=== PATIENT | female | born 1985 | race Caucasian/White ===

== ENCOUNTER 2016-07-26 22:25 | Emergency (ER) | payer OTHER ==
[2016-07-26 22:39] VITALS: BP 131/80; RESP 16; O2SAT 98
[2016-07-26] MEDS ORDERED: _oxyCODONE/APAP 5-325 mg Tablet PO PRN (22:45)
--- NOTE | 2016-07-26 22:50 | ED.REPORT ---
HPI-Ear Pain/Problem/FB Date of Service July 26, 2016 ED Provider: Leonidas Rodríguez DO A 31 year old female with a history of migraines presents to the ED complaining of left ear pain. The pt has been experiencing this pain since returning from [place] on 07/15/2016 and is concerned that she may have perforated her eardrum. The pt has had a perforated eardrum before and required a patch. She has also taken Keflex without improvement. Nursing Notes Stated Complaint: PERFORATED EARDRUM Chief Complaint: ENT & Mouth Nursing Notes Reviewed: Yes Allergies: Coded Allergies: amoxicillin (Verified Allergy, Unknown, Rash, 07/26/16) hydrocodone (Verified Adverse Reaction, Unknown, Nausea,Vomiting, 07/26/16) General Time Seen by MD: 22:35 Chief Complaint Ear problem left Hx Obtained From: Patient Arrived By: Walk-in Onset Occurred: More than a week ago... Symptom Duration: Since onset Recent Healthcare: No recent doctor visit, No recent hospitalization Similar Sx Previous: Yes Past Medical History Past Medical History perforated TM Past Surgical History left foot tubes in ears Smoking History Unknown if Ever Smoker Social History Alcohol Use: "Social" Ambulatory Status Independent Review of Systems Constitutional: Denies: Fever Ears / Nose / Throat: Reports: Earache left Complete sys rev & neg: except as marked. Additional Review of Systems Respiratory: Denies: Non-productive cough, Shortness of breath Cardiovascular: Denies: Chest pain GI: Denies: Abdominal pain Musculoskeletal: Denies: Back pain Physical Exam Initial Vital Signs Vital Signs (First) Date Time Temp Pulse Resp B/P Pulse Ox O2 Delivery O2 Flow Rate FiO2 07/26/16 22:39 36.5 83 16 131/80 98 Room Air Initial VS: Reviewed General/Constitutional: Awake, Alert ENT: Airway patent, Mucous membranes moist left TM torn with erythematous defect Head / Eyes: Atraumatic, Normocephalic, PERRL, EOMI Neck: Atraumatic, Supple, Full range of motion Respiratory / Chest: No respiratory distress Cardiovascular: Heart rate NL, Regular rhythm Skin: Color NL, No rash, Warm, Dry Neurologic: Oriented X3, Speech NL, No motor deficits, No sensory deficits Back: Atraumatic, Full range of motion Upper Extremity / MS: Atraumatic, Full range of motion Lower Extremity / Pelvis / MS: Atraumatic, Full range of motion Psychiatric: Affect NL, Mood NL Interpretation & Diagnostics Pulse Oximetry Interpretation Pulse Oximetry Interpretation: 98% on room air Pulse Oximetry: Pulse Ox normal Re-Eval/Medical Decision Source of Hx: Old records Re-Evaluation/Progress : Time of Eval: 22:35 Patient Status: Condition improved Re-Evaluation/Progress Note: Pt informed of the diagnosis and plan for discharge during the intial interview. The pt understands and agrees with the plan. All questions are addressed at this time. Counseled Regarding: Diagnosis, Need for follow-up, When/why to return to ED Discharge & Departure Primary Impression: Perforated ear drum Laterality: left Qualified Code: H72.92 - Unspecified perforation of tympanic membrane, left ear Disposition: Home Discharge Condition All VS Reviewed: Yes Condition: Stable Additional Instructions: Take Omnicef twice daily for ten days. Ten drops of ofloxacin twice daily for seven days. Take 1 to 2 Percocet every 6 hours as needed for severe pain. Do not drink, drive, or consume acetaminophen while taking the Percocet. Follow up with ENT (Dr. Simmons) for further evaluation. Return to the emergency department if you develop any new or worsening symptoms. Referrals: Will Simmons MD Attestation Portions of this note were transcribed by Orion Saba. I, Dr. Rodríguez personally performed the history, physical exam and medical decision-making; I reviewed and confirmed the accuracy of the information in the transcribed note. Signed by: Surekha Harrington, 07/26/16 and 7250. copies to: Will Simmons MD, Todd P DO July 26, 2016 22:50 ORION SABA July 26, 2016 22:54 Leonidas Rodríguez DO July 26, 2016 22:50 ORION SABA July 26, 2016 22:54
== END 2016-07-26 23:10 | disposition home or self-care (01) ==
LOC: SED 22:25
DX: H72.92 Unspecified perforation of tympanic membrane, left ear (principal); Z88.1 Allergy status to other antibiotic agents; Z88.5 Allergy status to narcotic agent